=== PATIENT | female | born 1955 | race Caucasian/White ===

== ENCOUNTER 2023-02-27 09:02 | Outpatient (CLI) | payer MEDICARE, OTHER | END 2023-02-27 09:03 | disposition home or self-care (01) | LOC: CSHMAMMO 09:02 | PROVIDERS: ATTEND Obstetrics & Gynecology | DX: Z12.31 Encounter for screening mammogram for malignant neoplasm of breast (principal); Z85.89 Personal history of malignant neoplasm of other organs and systems | CPT/HCPCS: 77063; 77067 ==

== ENCOUNTER 2023-12-19 09:00 | Outpatient (CLI) | payer MEDICARE, OTHER | END 2023-12-19 09:01 | disposition home or self-care (01) | LOC: CSHULT 09:00 | PROVIDERS: ATTEND Internal Medicine Gastroenterology | DX: K92.1 Melena (principal); K21.9 Gastro-esophageal reflux disease without esophagitis; R10.13 Epigastric pain; Z85.048 Personal history of other malignant neoplasm of rectum, rectosigmoid junction, and anus; R16.0 Hepatomegaly, not elsewhere classified | CPT/HCPCS: 76700 ==